=== PATIENT | female | born 1950 | race Caucasian/White ===

== ENCOUNTER 2017-12-03 13:00 | Observation (INO) | payer MEDICARE, OTHER ==
[~2017-12-03] VITALS: Ht 167.6 cm; Wt 82.1 kg
[2017-12-03] MEDS ORDERED: SODIUM CHLORIDE 0.9% 1000ML 500 ML IV STA (14:13)
[2017-12-03] MEDS ORDERED: SODIUM CHLORIDE 0.9% 1000ML 1,000 ML IV STA (14:13)
[2017-12-03] MEDS ORDERED: MORPHINE SULFATE 4 MG/ML SYR IV STA (14:13)
[2017-12-03] MEDS ORDERED: PANTOPRAZOLE 40 MG 10ML VIAL IV STA (14:13)
[2017-12-03] MEDS ORDERED: ONDANSETRON HCL INJ 2 MG/ML VIAL IV STA (14:13)
[2017-12-03] MEDS ORDERED: METRONIDAZOLE 500MG/NS 100ML 100 ML IV STA (14:13)
[2017-12-03] MEDS ORDERED: CIPROFLOXACIN 200 MG/D5W 100ML 100 ML IV ONE (14:15)
[2017-12-03] MEDS ORDERED: DIATRIZOATE MEGL/DIATRIZOA SOD 30 ML BTL PO ONE (14:23)
[2017-12-03 14:27] LABS: BASOPHILS % 0.3 % (0.0-1.0); EOSINOPHILS # (AUTO) 0.1 (0.0-0.4); EOSINOPHILS % 0.8 % (0.0-6.0); HEMATOCRIT 35.5 % (34.2-44.1); HEMOGLOBIN 12.6 g/dL (12.0-16.0); LYMPHOCYTES # (AUTO) 1.8 (1.0-3.2); LYMPHOCYTES % 15.7 % (18.0-39.1); MEAN CORPUSCULAR HEMOGLOBIN 35.2 pg (28-32); MEAN CORPUSCULAR HGB CONC 35.5 g/dL (31-35); MEAN CORPUSCULAR VOLUME 99.2 fL (81-99); MONOCYTES # (AUTO) 0.8 (0.2-0.8); MONOCYTES % 7.3 % (4.4-11.3); NEUTROPHILS # (AUTO) 8.5 (2.1-6.9); NEUTROPHILS % 75.5 % (38.7-80.0); PLATELET COUNT 304 x10e3/uL (140-360); RED BLOOD COUNT 3.58 x10e6/uL (3.6-5.1); RED CELL DISTRIBUTION WIDTH 11.8 % (11.7-14.4)
[2017-12-03] MEDS ORDERED: MORPHINE SULFATE 2 MG/ML SYR ONE (14:31)
[2017-12-03 14:32] LABS: INR 0.98; PROTHROMBIN TIME 12.2 seconds (11.9-14.5)
[2017-12-03 14:33] LABS: PARTIAL THROMBOPLASTIN TIME 29.5 seconds (23.8-35.5)
[2017-12-03 14:33] LABS: BILIRUBIN,URINE NEGATIVE (NEGATIVE); COLOR,URINE YELLOW (YELLOW); KETONES,URINE NEGATIVE (NEGATIVE); LEUKOCYTE ESTERASE ,URINE 2+ (NEGATIVE); NITRITE,URINE NEGATIVE (NEGATIVE); PROTEIN,URINE DIPSTICK NEGATIVE (NEGATIVE); URINE UROBILINOGEN 0.2 mg/dL (0.2 - 1)
[2017-12-03 14:36] LABS: CLARITY,URINE SL CLOUDY (CLEAR)
[2017-12-03 14:40] LABS: ALANINE AMINOTRANSFERASE 25 IU/L (0-55); ALBUMIN 3.7 g/dL (3.5-5.0); ALKALINE PHOSPHATASE 109 IU/L (40-150); ANION GAP 13.3 mmol/L (8-16); BLOOD UREA NITROGEN 13 mg/dL (7-26); BUN/CREATININE RATIO 16 (6-25); CALCIUM 9.6 mg/dL (8.4-10.2); CARBON DIOXIDE 22 mmol/L (22-29); CHLORIDE 103 mmol/L (98-107); CREATINE KINASE 38 IU/L (29-168); CREATININE, SERUM 0.82 mg/dL (0.57-1.11); EST GLOMERULAR FILTRATION RATE > 60 ML/MIN (60-); GLUCOSE 100 mg/dL (74-118); LIPASE 42 U/L (8-78); MAGNESIUM 1.7 MG/DL (1.3-2.1); POTASSIUM 4.3 mmol/L (3.5-5.1); SODIUM 134 mmol/L (136-145)
[2017-12-03 14:51] LABS: BACTERIA,URINE FEW /HPF; EPITHELIAL CELLS,URINE FEW /LPF; RBC,URINE 0-5 /HPF (0-5)
--- NOTE | 2017-12-03 15:10 | Diagnostic Imaging Report ---
EXAM: XR CHEST 1 VIEW DATE: 12/03/2017 2:13 PM INDICATION: Shortness of breath COMPARISON: None FINDINGS: Lines and Tubes: None Heart and Mediastinum: No acute findings. Lungs and Pleura: No acute findings. Bones and Soft Tissues: No acute findings. IMPRESSION: 1. No acute cardiopulmonary findings. Signed by: Dr. Varinder Cole MD on 12/03/2017 3:07 PM
[2017-12-03] MEDS ORDERED: MORPHINE SULFATE 2 MG/ML SYR IV PRN (15:15)
[2017-12-03] MEDS ORDERED: ONDANSETRON HCL INJ 2 MG/ML VIAL IV PRN (15:15)
--- OUTSIDE RECORDS SUMMARY | 2017-12-03 15:24 | XMS REPORT ---
Author Author [facility] Address Unknown Phone Unavailable Care Team Providers Care Pharmacy Informatics Specialist Name Role Phone BEV MACKENZIE Unavailable Unavailable Problems This patient has no known problems. Allergies, Adverse Reactions, Alerts This patient has no known allergies or adverse reactions. Medications This patient has no known medications. Results Test Description Test Time Test Comments Text Results Atomic Results Result Comments CHEST SINGLE (PORTABLE) [place] [address] Patient Name: DEANDRE GRANT MR #: [id number] : 1950 Age/Sex: 67/F Req #: [id number] Adm Physician: Ordered by: BEV MACKENZIE MD, MD Report #: [id number] Location: ER Room/Bed: Procedure: [id number] DX/CHEST SINGLE (PORTABLE) Exam Date: 12/03/17 Exam Time: 1440 REPORT STATUS: Signed EXAM: XR CHEST 1 VIEW DATE: 12/03/2017 2:13 PM INDICATION: Shortness of breath COMPARISON: None FINDINGS: Lines and Tubes: None Heart and Mediastinum: No acute findings. Lungs and Pleura: No acute findings. Bones and Soft Tissues: No acute findings. IMPRESSION: 1. No acute cardiopulmonary findings. Signed by: Dr. Varinder Noyola MD on 12/03/2017 3: 07 PM Dictated By: VARINDER NOYOLA MD [id number] Transcribed By: LENO on 12/03/17 150 COPY TO: BEV MACKENZIE
[2017-12-03] MEDS: SODIUM CHLORIDE 0.9% 1000ML 1,000 ML IV SCH (15:29)
[2017-12-03] MEDS: CIPROFLOXACIN 400 MG/D5W 200ML 200 ML IV SCH (15:29)
[2017-12-03] MEDS ORDERED: IOPAMIDOL 370 MG/ML 200 ML INFUS..BTL INJ ONE (16:00)
[2017-12-03] MEDS ORDERED: SODIUM CHLORIDE 0.9% 50ML 50 ML ONE (16:00)
--- NOTE | 2017-12-03 16:06 | Diagnostic Imaging Report ---
EXAM: CT Abdomen and Pelvis WITH contrast INDICATION: Pain/diarrhea COMPARISON: None. TECHNIQUE: Abdomen and Pelvis was scanned utilizing a multidetector helical scanner after administration of IV contrast. Coronal and sagittal reformations were obtained. IV CONTRAST: 100 mL Isovue-370 COMPLICATIONS: None RADIATION DOSE: Total DLP:577 mGy*cm Estimated effective dose: (DLP x 0.015 x size factor) mSv CTDIvol has been reviewed. It is below the limits set by the Radiation Protocol Committee (RPC). FINDINGS: Abdomen: Lung Bases: Atelectasis lung bases. Solid Organs: Cyst inferior left kidney. Mild reservoir phenomenon common duct. Otherwise, solid organs unremarkable. Upper GI Tract: No small bowel obstructive changes. Vascularity: Mild vascular calcifications with no aortic aneurysm. Lymph Nodes: No suspicious adenopathy. Other: None. Pelvis: Bladder: Unremarkable. Other: Uterus absent. Colon: Diverticulosis of the sigmoid colon with moderate inflammatory changes distal sigmoid colon. No rim-enhancing fluid collection. Fluid present proximal colon. Bones: Degenerative changes spine. IMPRESSION: 1. Moderate sigmoid diverticulitis without focal abscess identified. 2. Other findings as above. Signed by: Dr. Varinder Cole MD on 12/03/2017 4:03 PM
[2017-12-03] MEDS ORDERED: CEFTRIAXONE SOD 1 GM VIAL IM ONE (16:30)
[2017-12-03] MEDS ORDERED: FAMOTIDINE 20 MG/2 ML VIAL IV SCH (17:00)
[2017-12-03 17:20] VITALS: BP 150/70
[2017-12-03] MEDS: METRONIDAZOLE 500MG/NS 100ML 100 ML IV SCH (18:02)
[2017-12-03 18:06] VITALS: BP 150/70
[2017-12-03 20:35] VITALS: BP 157/71
[2017-12-03] MEDS ORDERED: HYDRALAZINE HCL 20 MG/ML VIAL IV PRN (23:00)
[2017-12-04] VITALS (7 sets, daily range): BP systolic 139–150; BP diastolic 64–68
[2017-12-04] MEDS: AMLODIPINE BESYLATE 10 MG TAB PO SCH ×2 (00:58→08:10)
[2017-12-04] MEDS: SODIUM CHLORIDE 0.9% 1000ML 1,000 ML IV SCH (00:58)
[2017-12-04] MEDS: METRONIDAZOLE 500MG/NS 100ML 100 ML IV SCH ×4 (00:58→18:32)
[2017-12-04] MEDS: CIPROFLOXACIN 400 MG/D5W 200ML 200 ML IV SCH ×2 (04:15→15:15)
[2017-12-04] MEDS ORDERED: ACETAMINOPHEN 325 MG TAB PO PRN (06:30)
[2017-12-04 08:01] LABS: BASOPHILS % 0.4 % (0.0-1.0); EOSINOPHILS # (AUTO) 0.1 (0.0-0.4); EOSINOPHILS % 1.5 % (0.0-6.0); HEMATOCRIT 34.8 % (34.2-44.1); HEMOGLOBIN 11.9 g/dL (12.0-16.0); LYMPHOCYTES # (AUTO) 1.4 (1.0-3.2); LYMPHOCYTES % 16.7 % (18.0-39.1); MEAN CORPUSCULAR HGB CONC 34.2 g/dL (31-35); MEAN CORPUSCULAR VOLUME 102.4 fL (81-99); MONOCYTES # (AUTO) 0.6 (0.2-0.8); MONOCYTES % 7.3 % (4.4-11.3); NEUTROPHILS # (AUTO) 6.1 (2.1-6.9); NEUTROPHILS % 73.6 % (38.7-80.0); PLATELET COUNT 277 x10e3/uL (140-360); RED CELL DISTRIBUTION WIDTH 11.8 % (11.7-14.4)
[2017-12-04] MEDS: FAMOTIDINE 20 MG TAB PO SCH ×2 (08:10→16:18)
[2017-12-04 08:27] LABS: ALANINE AMINOTRANSFERASE 30 IU/L (0-55); ALBUMIN 3.3 g/dL (3.5-5.0); ALBUMIN/GLOBULIN RATIO 0.9 (0.8-2.0); ALKALINE PHOSPHATASE 109 IU/L (40-150); ANION GAP 10.2 mmol/L (8-16); BLOOD UREA NITROGEN 9 mg/dL (7-26); BUN/CREATININE RATIO 11 (6-25); CALCIUM 9.3 mg/dL (8.4-10.2); CARBON DIOXIDE 24 mmol/L (22-29); CHLORIDE 106 mmol/L (98-107); CREATININE, SERUM 0.85 mg/dL (0.57-1.11); EST GLOMERULAR FILTRATION RATE > 60 ML/MIN (60-); GLUCOSE 98 mg/dL (74-118); LIPASE 24 U/L (8-78); POTASSIUM 4.2 mmol/L (3.5-5.1); SODIUM 136 mmol/L (136-145)
[2017-12-04] MEDS ORDERED: SODIUM CHLORIDE 0.9% 1000ML 1,000 ML ONE (17:07)
[2017-12-04] MEDS ORDERED: ACETAMIN/BUTALBITAL/CAFFEINE TAB PO PRN (18:00)
[2017-12-04] MEDS ORDERED: ACETAMIN/BUTALBITAL/CAFFEINE TAB PO ONE (18:00)
[2017-12-04] MEDS: CHOLESTYRAMINE 4 GM PACKET PO SCH (21:00)
--- NOTE | 2017-12-04 21:25 | History and Physical ---
PRIMARY CARE PROVIDER: Dr. Justice Valdez. HISTORY OF PRESENT ILLNESS: The patient is a 67-year-old female who began having right lower quadrant and suprapubic abdominal pain on 12/01/2017. At its maximum, the severity was described as moderate and 4/10 on a 0-10 pain scale. She went to the emergency department. Modifying factors included worsening with movement and walking and it was relieved by rest. She had nausea, vomiting and diarrhea. She states that she had diverticulitis 4 times previously and that a Dr. Concepcion in [place], [place] told her the next time she had diverticulitis that she would require surgery. However, she admits that she is hesitant to go to physicians, that is just a general fear, such as not wanting to go to the dentist. She has been started on IV antibiotics as well as IV fluids. Her is at the bedside. PAST MEDICAL HISTORY: Breast and uterine cancer, hypertension, perforated duodenal ulcer, peritonitis, diverticulitis x4. The patient has chronic left leg lymphedema. She has a specialized compression stocking on the left lower extremity, which is larger than the right lower extremity. PAST SURGICAL HISTORY: Bilateral mastectomy, appendectomy, cholecystectomy, total abdominal hysterectomy with salpingectomy. PAST FAMILY HISTORY: The patient's brother had pancreatic cancer. Her father had bladder cancer and her mom had congestive heart failure. PAST SOCIAL HISTORY: The patient states she stopped smoking in 1981. She smoked one pack per day for 15 years. She admits to occasional alcohol use. Denies any illicit drug use. She lives with her . HOME MEDICATIONS: Per electronic medical records. ALLERGIES: OZZIE INHIBITORS, PENICILLIN, SULFA. REVIEW OF SYSTEMS: GENERAL: The patient complains of general malaise. Denies any fever or chills. HEENT: She denies sore throat, visual complaints or stuffy nose. She has a complaint of headache, 5/10 on a 0-10 pain scale. CARDIOVASCULAR: Denies any chest pain or palpitations. No complaints of syncope. PULMONARY: Denies pleuritic chest pain. No shortness of breath, cough or phlegm. GASTROINTESTINAL: Currently denies nausea or vomiting. She has abdominal pain, which she rates 4/10 on a 0-10 pain scale. She states that she did not have any diarrheal stools yesterday, but had 6 diarrheal stools today without pain. Denies any vomiting today. GENITOURINARY: Denies dysuria, frequency or urgency. MUSCULOSKELETAL: Denies any back pain or joint pain. ENDOCRINE: Negative for diabetes. HEMATOLOGY: Denies bleeding or bruising. INFECTIOUS DISEASE: No known history of HIV or immunodeficiency. NEUROLOGIC: Denies any focal weakness, tingling, numbness, seizures. PHYSICAL EXAMINATION: VITAL SIGNS: Temperature 96.3. T max 98.9. Heart rate 84. Blood pressure 143/68. Pulse of 93. Respirations 18. Oxygen saturation 97%. Weight 181 pounds. BMI 29.21. Intake and output 1500 mL in and output not recorded. GENERAL: The patient is lying supine in bed. No apparent distress. She is well nourished and well developed, morbidly obese. is at the bedside. HEENT: Pupils are equal, round and reactive to light. Extraocular eye movements intact. Oropharynx clear. Atraumatic. Normocephalic. NECK: Supple with no lymphadenopathy, thyromegaly or JVD. No carotid bruit. CARDIOVASCULAR: Regular rate and rhythm without murmur. LUNGS: Air entry bilaterally. No wheezes, crackles or rhonchi. Lung sounds are clear to auscultation. ABDOMEN: Bowel sounds positive and soft. Slightly tender to gentle palpation. Morbidly obese. BACK: No costovertebral angle tenderness. EXTREMITIES: No pitting edema. She has lymphedema in the left lower extremity. INTEGUMENT: Warm and dry. NEUROLOGIC: GCS 15. Cranial nerves II-XII are intact. Alert and oriented x4. Nonfocal. LABORATORY DATA: On admission WBC 11.22. Hemoglobin 12.6, hematocrit 35.5, platelets 304,000. Sodium 134. Potassium 4.3, chloride 103. CO2 22. Anion gap 13.3. BUN 13. Creatinine 0.82. GFR greater than 60. Glucose 100. Calcium 9.6. Magnesium 1.7. Total bilirubin 0.6. AST 18, ALT 25. Alkaline phosphatase 109. Creatinine kinase 38. CK-MB is 0.70. Troponin I less than 0.001. Total protein 7.3. Albumin 3.7. Globulin 3.6. Lipase 42. Sodium 136. Potassium 4.2, chloride 106. CO2 24. Anion gap 10.2. BUN 9. Creatinine 0.85. GFR greater than 60. Glucose 98. Calcium 9.3. Total protein 0.6. AST 25. ALT 30. Alkaline phosphatase 109. Total protein 6.9.. Albumin 3.3 today. Lipase 24. Also yesterday PT 12.2. INR 0.98. PTT 29.5. Urinalysis collected yesterday showed trace amount of blood. Specific gravity 0.02, 2+ leukocyte esterases, 6 to 10 WBCs, few epithelial cells, few urine bacteria. Also today's WBC 8.24, hemoglobin 11.9, hematocrit 34.8, platelets 277,000. Urine culture and sensitivity is in process. Chest x-ray yesterday was negative. CT of the abdomen and pelvis with contrast completed yesterday showed diverticulosis of the sigmoid colon with moderate inflammatory changes, distal sigmoid colon. No focal abscess identified. A 12-lead EKG was completed this morning which shows sinus rhythm with borderline 1st-degree AV block. Ventricular rate of 64. IL interval 928 milliseconds. ASSESSMENT AND PLAN 1. Right lower quadrant and suprapubic abdominal pain with cramping. Continue IV morphine for pain. 2. Moderate [id number] diverticulitis. The patient is on IV Cipro and Flagyl. Continue IV hydration with normal saline at 100 mL an hour. Case discussed with Dr. Doherty. No need for GI consult at this time. Clear liquid diet has been changed to regular diet by Dr. Doherty to see if she can tolerate eating. 3. Diarrhea. Monitor diarrhea and continue IV hydration. Will add probiotic and Questran. Monitor intake and output. 4. Urinary tract infection. Continue Cipro. Await urine culture and sensitivity results. Will also add vitamin C. 5. Hypertension. Continue Norvasc and p.r.n. IV hydralazine for systolic blood pressure greater than 160, currently controlled. 6. Headache. Patient has had Tylenol which helped some. Will add Fioricet. 7. Mild hypomagnesemia. Will add magnesium oxide p.o. b.i.d. 8. Chronic left leg lymphedema. Continue specialized compression stockings. 9. Prophylaxis. Continue Pepcid. Dictated by: Sudeep Emmanuel NP Job#: [id number]
[2017-12-05] VITALS (7 sets, daily range): BP systolic 118–162; BP diastolic 54–80
[2017-12-05] MEDS: METRONIDAZOLE 500MG/NS 100ML 100 ML IV SCH ×4 (00:15→18:14)
[2017-12-05] MEDS: CIPROFLOXACIN 400 MG/D5W 200ML 200 ML IV SCH ×2 (03:36→15:15)
[2017-12-05] MEDS: FAMOTIDINE 20 MG TAB PO SCH ×2 (07:30→16:12)
[2017-12-05 07:36] LABS: BASOPHILS % 0.4 % (0.0-1.0); EOSINOPHILS # (AUTO) 0.1 (0.0-0.4); EOSINOPHILS % 1.6 % (0.0-6.0); HEMATOCRIT 31.7 % (34.2-44.1); HEMOGLOBIN 10.9 g/dL (12.0-16.0); LYMPHOCYTES # (AUTO) 1.1 (1.0-3.2); LYMPHOCYTES % 13.4 % (18.0-39.1); MEAN CORPUSCULAR HEMOGLOBIN 34.7 pg (28-32); MEAN CORPUSCULAR HGB CONC 34.4 g/dL (31-35); MONOCYTES # (AUTO) 0.7 (0.2-0.8); MONOCYTES % 8.3 % (4.4-11.3); NEUTROPHILS # (AUTO) 6.2 (2.1-6.9); NEUTROPHILS % 75.9 % (38.7-80.0); PLATELET COUNT 259 x10e3/uL (140-360); RED BLOOD COUNT 3.14 x10e6/uL (3.6-5.1); RED CELL DISTRIBUTION WIDTH 11.8 % (11.7-14.4)
[2017-12-05 07:57] LABS: ANION GAP 12.2 mmol/L (8-16); BLOOD UREA NITROGEN 7 mg/dL (7-26); BUN/CREATININE RATIO 9 (6-25); CALCIUM 9.5 mg/dL (8.4-10.2); CARBON DIOXIDE 23 mmol/L (22-29); CHLORIDE 106 mmol/L (98-107); CREATININE, SERUM 0.81 mg/dL (0.57-1.11); EST GLOMERULAR FILTRATION RATE > 60 ML/MIN (60-); GLUCOSE 96 mg/dL (74-118); POTASSIUM 4.2 mmol/L (3.5-5.1); SODIUM 137 mmol/L (136-145)
[2017-12-05 08:14] LABS: MAGNESIUM 1.8 MG/DL (1.3-2.1); PHOSPHORUS 2.9 MG/DL (2.3-4.7)
[2017-12-05] MEDS: MAGNESIUM OXIDE 400 MG TAB PO SCH ×2 (09:00→16:12)
[2017-12-05] MEDS: LACTOBACILLUS ACIDOPHILUS CAPSULE PO SCH ×2 (09:01→16:12)
[2017-12-05] MEDS: ASCORBIC ACID 500 MG TAB PO SCH ×2 (09:01→16:12)
[2017-12-05] MEDS: CHOLESTYRAMINE 4 GM PACKET PO SCH ×2 (09:01→16:12)
[2017-12-05] MEDS: AMLODIPINE BESYLATE 10 MG TAB PO SCH (09:02)
[2017-12-05] MEDS ORDERED: CHOLESTYRAMINE L4 GM PO (18:13)
[2017-12-05] MEDS ORDERED: ULTRAM 50MG50 MG PO (18:13)
[2017-12-05] MEDS ORDERED: Lactobacillus Acidophilus PO (18:13)
[2017-12-05] MEDS ORDERED: NORVASC10 MG PO (18:13)
[2017-12-05] MEDS ORDERED: ASCORBIC ACID500 MG PO (18:13)
[2017-12-05] MEDS ORDERED: Acetamin/Butalbital/Caffeine PO (18:13)
[2017-12-05] MEDS ORDERED: MAGNESIUM OXID400 MG PO (18:13)
[2017-12-05] MEDS ORDERED: FLAGYL500 MG PO (18:18)
[2017-12-05] MEDS ORDERED: CIPRO500 MG PO (18:18)
--- NOTE | 2017-12-05 19:41 | Discharge Summary ---
PERTINENT HISTORY AND PHYSICAL FINDINGS: The patient is a 67-year-old female who began having right lower quadrant and suprapubic abdominal pain on 12/01/2017. The pain was described as moderate, 4/10 on a 0-10 pain scale. She went to the emergency department and stated that she had diverticulitis 4 times previously and that the next time she had it she would require surgery. However, her modifying factors included worsening with movement and walking and relieved by rest. She had nausea, vomiting, and diarrhea. She was started on IV antibiotics including Cipro and Flagyl and normal saline. PAST MEDICAL HISTORY: Included breast and uterine cancer, hypertension, perforated duodenal ulcer, peritonitis, diverticulitis x4, chronic left leg lymphedema, specialized compression stocking on the left lower extremity. PAST SURGICAL HISTORY: Positive for bilateral mastectomy, appendectomy, cholecystectomy, total abdominal hysterectomy with salpingectomy. PAST FAMILY HISTORY: Positive for pancreatic cancer in the brother and bladder cancer in the father and congestive heart failure in the mother. PAST SOCIAL HISTORY: The patient admits to occasional alcohol use. She stopped smoking in 1981. She smoked 1 pack per day for 15 years. Denies any illicit drug use. ALLERGIES: OZZIE INHIBITORS, PENICILLIN, SULFA. PRIMARY CARE PHYSICIAN: Dr. Justice Valdez. ADMITTING DIAGNOSES 1. Right lower quadrant and suprapubic abdominal pain with cramping. 2. Moderate acute on chronic diverticulitis. 3. Diarrhea. 4. Urinary tract infection. 5. Hypertension. 6. Headache. 7. Mild hypomagnesemia. 8. Chronic left leg lymphedema. DISCHARGE DIAGNOSES 1. Right lower quadrant and suprapubic abdominal pain with cramping. 2. Moderate acute on chronic diverticulitis. 3. Diarrhea. 4. Urinary tract infection. 5. Hypertension. 6. Headache. 7. Mild hypomagnesemia. 8. Chronic left leg lymphedema. There were no consults for this admission. PERTINENT DIAGNOSTIC STUDIES: On admission WBC 11.22, hemoglobin and hematocrit stable at 12.6 and 35.5. Sodium 134. BUN 13, creatinine 0.82. GFR greater than 60. Magnesium 1.7. AST 18. ALT 25. Alkaline phosphatase 109. Troponin I less than 0.001. Total protein 7.3. Albumin 3.7. Lipase 42. Urinalysis showed trace amount of blood, 2+ leukocyte esterases, 6 to 10 WBCs, few epithelials cells, few urine bacteria. Chest x-ray negative. CT of the abdomen and pelvis with contrast had shown diverticulitis of the sigmoid colon with moderate inflammatory changes distal sigmoid colon. No focal abscess identified. A 12-lead EKG had shown normal sinus rhythm with borderline 1st-degree AV block. Ventricular rate 64. CT interval 928 milliseconds. Today, sodium 137, potassium 4.2, chloride 106, CO2 23, BUN 7, creatinine 0.81. Glucose 96. WBC is 8.19, hemoglobin 10.9, hematocrit 31.7, platelets 259. Magnesium 1.8. Phosphorus 2.9. On review of systems, the patient states that her abdominal pain is much improved, 1-2 on a scale of 0 to 10 and she has had no further diarrhea. She has been eating well during all meals today. The patient has been on morphine sulfate for pain. She also received, Pepcid, Questran, lactobacillus acidophilus. IV Flagyl and Cipro. She had magnesium replacement orally for hypomagnesemia. Physical examination unchanged. Vital signs temperature 97.3, heart rate 73, blood pressure 155/80. Respiratory rate 18. Oxygen saturation 98%. DISPOSITION: Home without home health. No DME required. She is to continue on a regular diet. Activity level as tolerated. Follow up with PCP in 1 to 2 weeks. Prescriptions were Cipro 500 mg p.o. b.i.d. for a week and Flagyl 500 mg p.o. t.i.d. for one week. Magnesium oxide 400 mg p.o. b.i.d. and lactobacillus acidophilus, Questran, ascorbic acid. Norvasc 10 mg daily and Fioricet q.4 hours p.r.n. for headache. Tramadol 50 mg p.o. q.4 hours p.r.n. for pain. Dictated by: Sudeep Emmanuel NP RENAE GUY MD Job#: [id number]
== END 2017-12-05 19:36 | disposition home or self-care (01) ==
LOC: ER 13:00 → ERHOLD 15:21 → MED/SURG 16:16
PROVIDERS: ADMIT Internal Medicine; ATTEND Internal Medicine
DX: K57.32 Diverticulitis of large intestine without perforation or abscess without bleeding (principal); N39.0 Urinary tract infection, site not specified; K59.00 Constipation, unspecified; R19.7 Diarrhea, unspecified; R51 Headache; E83.42 Hypomagnesemia; I89.0 Lymphedema, not elsewhere classified; Z88.0 Allergy status to penicillin; Z88.2 Allergy status to sulfonamides; Z88.6 Allergy status to analgesic agent; Z85.3 Personal history of malignant neoplasm of breast; Z85.42 Personal history of malignant neoplasm of other parts of uterus
CPT/HCPCS: 36415 ×3; 71045; 74177; 80048; 80053 ×2; 81001; 82550; 82553; 83690 ×2; 83735 ×2; 84100; 84484; 85025 ×3; 85610; 85730; 87086; 93005; 99284; G0378 ×3; J0696; J0744 ×4; J2270; J2405; J7030 ×2; Q9967